=== PATIENT | male | born 1925 | race Caucasian/White ===

== ENCOUNTER 2017-03-23 13:40 | Emergency (ER) | payer MEDICARE, BC ==
[2017-03-23 14:16] VITALS: BP 143/71
[2017-03-23] MEDS ORDERED: Albuterol/Ipratropium 3.0-0.5 MG/3 ML Neb Soln NEB ONE (14:26)
--- NOTE | 2017-03-23 14:30 | EDM.PDOC ---
ED HPI GENERAL MEDICAL PROBLEM - General Chief Complaint: Respiratory Problem Stated Complaint: shortness of breath. Time Seen by Provider: 03/23/17 14:25 Source of Information: Reports: Patient History Limitations: Reports: No Limitations - History of Present Illness INITIAL COMMENTS - FREE TEXT/NARRATIVE: 89-year-old male presents to the ED with gradually worsening dyspnea over the last 6 months. He states it got to the point that he can't make his bed without having to stop because of dyspnea. He can't get fully dressed without having to stop and rest. He has known COPD. Smoking 35 years ago. 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 Has no known heart disease. Denies any chest pain on exertion dyspnea. Sputum is usually 10 in color because anything up. He was recently seen in the clinic last week and started on Spiriva inhaler he got a cheaper form of this but states he really hasn't noticed any difference in terms of his dyspnea. He did not have any pneumonias or influenza over the last 6 months. Has had his pneumonia and flu shots. He is good when he is at rest. He can lay flat to sleep with no point paroxysmal nocturnal dyspnea or orthopnea. Onset: Gradual (Over the last 3-6 months.) Duration: Week(s):, Chronic, Getting Worse Location: Reports: Chest (Can get her.) Quality: Reports: Other Severity: Severe (Shortness of breath on exertion) Improves with: Reports: Rest Worsens with: Reports: Movement Context: Reports: Activity. Denies: Exercise, Lifting, Sick Contact, Trauma, Other Associated Symptoms: Reports: cough w sputum (10-colored sputum), Shortness of Breath, Weakness. 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: Reports: Other (see below) - Related Data Allergies Allergy/AdvReac Type Severity Reaction Status Date / Time No Known Allergies Allergy Verified 03/23/17 14:16 Home Meds: Home Meds Warfarin Sodium [Coumadin] 3 mg PO ASDIRECTED 09/05/16 [History] Warfarin Sodium [Coumadin] 6 mg PO ASDIRECTED 09/05/16 [History] Albuterol [Ventolin HFA] 108 mcg INH Q4H PRN 09/06/16 [History] Aspirin 162 mg PO BRK 09/06/16 [History] Donepezil HCl [Aricept] 10 mg PO DAILY 09/06/16 [History] Folic Acid 0.8 mg PO DAILY 09/06/16 [History] Metoprolol Tartrate [Lopressor] 25 mg PO Q12HR 09/06/16 [History] Omeprazole 20 mg PO DAILY 09/06/16 [History] Simvastatin [Zocor] 40 mg PO BEDTIME 09/06/16 [History] Temazepam [Restoril] 15 mg PO BEDTIME PRN 09/06/16 [History] Tiotropium [Spiriva HandiHaler] 18 mcg INH DAILY 09/06/16 [History] Furosemide [Lasix] 40 mg PO PCBREAKFAST #30 tablet 03/23/17 [Rx] Lisinopril 10 mg PO DAILY #30 tablet 03/23/17 [Rx] Past Medical History HEENT History: Reports: Cataract, Impaired Vision Cardiovascular History: Reports: Afib (Chronically and is on Coumadin for this.) , Arrhythmia, Hypertension, MT, SOB on Exertion Respiratory History: Reports: COPD Genitourinary History: Reports: Prostate Disorder Musculoskeletal History: Reports: Arthritis Neurological History: Reports: Other (See Below) Other Neuro History: takes aricept Psychiatric History: Reports: Anxiety, Dementia, Other (See Below) Endocrine/Metabolic History: Reports: Other (See Below) Other Endocrine/Metabolic History: Hodgkin's lymphoma Hematologic History: Reports: Other (See Below) Other Hematologic History: is on blood thinner Oncologic (Cancer) History: Reports: Hodgkin's Lymphoma - Past Surgical History Male Surgical History: Reports: Other (See Below) Social & Family History - Family History Family Medical History: Noncontributory - Tobacco Use Smoking Status *Q: Former Smoker Years of Tobacco use: 50 Used Tobacco, but Quit: Yes Month Tobacco Last Used: 40 years - Caffeine Use Caffeine Use: Reports: Coffee - Recreational Drug Use Recreational Drug Use: No - Living Situation & Occupation Living situation: Reports: Single Occupation: Retired ED ROS GENERAL - Review of Systems Review Of Systems: See Below Constitutional: Reports: Malaise, Weakness, Fatigue. Denies: Fever, Chills, Decreased Appetite, Weight Loss HEENT: Reports: No Symptoms, Glasses Respiratory: Reports: Shortness of Breath, Wheezing (Chronically), Cough, Sputum ([place] in color. ). Denies: Pleuritic Chest Pain Cardiovascular: Reports: Dyspnea on Exertion (Severe). Denies: Chest Pain, Blood Pressure Problem, Claudication, Edema, Lightheadedness, Orthopnea, Palpitations Endocrine: Reports: No Symptoms GI/Abdominal: Reports: No Symptoms : Reports: Other (Nocturia usually x3.) Musculoskeletal: Reports: Back Pain, Leg Pain (Some back pain). Denies: Neck Pain, Shoulder Pain, Arm Pain Skin: Reports: No Symptoms Neurological: Reports: No Symptoms Psychiatric: Reports: No Symptoms Hematologic/Lymphatic: Reports: No Symptoms Immunologic: Reports: No Symptoms ED EXAM, GENERAL - Physical Exam Exam: See Below Exam Limited By: No Limitations General Appearance: Alert, WD/WN, No Apparent Distress, Mild Distress (Is obviously dyspneic just talking to) Eye Exam: Bilateral Eye: Normal Inspection Throat/Mouth: Normal Inspection, Normal Lips, Normal Oropharynx Head: Atraumatic, Normocephalic Neck: Normal Inspection, Supple, Non-Tender, Full Range of Motion. No: Carotid Bruit, Lymphadenopathy (L), Lymphadenopathy (R) Respiratory/Chest: Decreased Breath Sounds. No: Rhonchi (Assaulters minimally did diminish to posterior lung cavazos. Occasional expiratory wheeze appreciated no rhonchi.) Cardiovascular: Normal Peripheral Pulses, No Edema, No Gallop, No Murmur, No Rub , Irregularly Irregular Peripheral Pulses: 1+: Posterior Tibial (L), Posterior Tibial (R), Dorsalis Pedis (L), Dorsalis Pedis (R) GI/Abdominal: Normal Bowel Sounds, Non-Tender, No Organomegaly, Other (Firm to palpation) Back Exam: Normal Inspection, Full Range of Motion Extremities: Normal Inspection, Normal Range of Motion, Non-Tender, Normal Capillary Refill Neurological: Alert, Oriented, CN II-XII Intact, Normal Cognition Psychiatric: Normal Affect, Normal Mood Skin Exam: Warm, Dry, Intact, Normal Color, No Rash EKG INTERPRETATION EKG Date: 03/23/17 Time: 14:40 Rhythm: other (Sinus bradycardia at 48 per minute) Rate (beats/min): 48 Errol: LAD-left axis deviation (-87. Left anterior fascicular block pattern) P-wave: present QRS: other (Early R wave transition consider right ventricular hypertrophy with pulmonary hypertension pattern.) ST-T: other (Diffuse T-wave changes throughout mostly flattening.) QT: prolonged Course - Vital Signs Last Recorded V/S: Last Vital Signs Temp 36.1 C 03/23/17 14:10 Pulse 48 L 03/23/17 14:10 Resp 26 H 03/23/17 14:10 BP 143/71 H 03/23/17 14:10 Pulse Ox 96 03/23/17 14:45 - Orders/Labs/Meds Orders: Active Orders 24 hr Category Date Time Status EKG Documentation Completion [RC] STAT Care 03/23/17 14:27 Active RT Aerosol Therapy [RC] ASDIRECTED Care 03/23/17 14:27 Active ABG [BLOOD GAS ARTERIAL] [BG] Stat Lab 03/23/17 14:54 Results Labs: Laboratory Tests 03/23/17 03/23/17 03/23/17 Range/Units 14:45 14:45 14:45 WBC 5.45 (4.23-9.07) K/mm3 RBC 4.15 L (4.63-6.08) M/mm3 Hgb 12.7 L (13.7-17.5) gm/L Hct 38.5 L (40.1-51.0) % MCV 92.8 H (79.0-92.2) fl MCH 30.6 (25.7-32.2) pg MCHC 33.0 (32.2-35.5) g/dl RDW Std Deviation 53.3 H (35.1-43.9) fL Plt Count 118 L (163-337) K/mm3 MPV 11.1 (9.4-12.3) fl Neutrophils % (Manual) 55 (40-60) % Band Neutrophils % 1 (0-10) % Lymphocytes % (Manual) 34 (20-40) % Atypical Lymphs % 0 % Monocytes % (Manual) 8 (2-10) % Eosinophils % (Manual) 2 (0.8-7.0) % Basophils % (Manual) 0 L (0.2-1.2) Platelet Estimate Adequate Plt Morphology Comment Normal RBC Morph Comment Normal PT (8.0-13.0) SECONDS INR ABG pH (7.35-7.45) ABG pCO2 (35.0-45.0) mmHg ABG pO2 (80.0-100.0) mmHg ABG HCO3 (22.0-26.0) meq/L ABG O2 Saturation (96.0-97.0) % ABG Base Excess (-2-2.0) Antonio Test A-a Gradient mmHg O2 Delivery Device FiO2 (21.00-100.00) % Sodium 139 (136-145) mEq/L Potassium 4.0 (3.5-5.1) mEq/L Chloride 107 (98-107) mEq/L Carbon Dioxide 21 (21-32) mEq/L Anion Gap 15.0 (5-15) BUN 16 (7-18) mg/dL Creatinine 1.0 (0.7-1.3) mg/dL Est Cr Clr Drug Dosing 48.45 mL/min Estimated GFR (MDRD) > 60 (>60) mL/min BUN/Creatinine Ratio 16.0 (14-18) Glucose 112 (83-115) mg/dL Calcium 9.3 (8.5-10.1) mg/dL Total Bilirubin 1.2 H (0.2-1.0) mg/dL AST 18 (15-37) U/L ALT 19 (16-63) U/L Alkaline Phosphatase 78 (46-116) U/L Troponin I 0.048 (0.00-0.056) ng/mL C-Reactive Protein 0.4 (<1.0) mg/dL B-Natriuretic Peptide 828 H (0-100) pg/mL Total Protein 6.7 (6.4-8.2) g/dl Albumin 3.7 (3.4-5.0) g/dl Globulin 3.0 gm/dL Albumin/Globulin Ratio 1.2 (1-2) 03/23/17 03/23/17 Range/Units 14:45 14:54 WBC (4.23-9.07) K/mm3 RBC (4.63-6.08) M/mm3 Hgb (13.7-17.5) gm/L Hct (40.1-51.0) % MCV (79.0-92.2) fl MCH (25.7-32.2) pg MCHC (32.2-35.5) g/dl RDW Std Deviation (35.1-43.9) fL Plt Count (163-337) K/mm3 MPV (9.4-12.3) fl Neutrophils % (Manual) (40-60) % Band Neutrophils % (0-10) % Lymphocytes % (Manual) (20-40) % Atypical Lymphs % % Monocytes % (Manual) (2-10) % Eosinophils % (Manual) (0.8-7.0) % Basophils % (Manual) (0.2-1.2) Platelet Estimate Plt Morphology Comment RBC Morph Comment PT 28.4 H (8.0-13.0) SECONDS INR 2.46 ABG pH 7.39 (7.35-7.45) ABG pCO2 31.2 L (35.0-45.0) mmHg ABG pO2 56.0 L (80.0-100.0) mmHg ABG HCO3 18.3 L (22.0-26.0) meq/L ABG O2 Saturation 90.5 L (96.0-97.0) % ABG Base Excess -5.3 L (-2-2.0) Antonio Test Positive A-a Gradient 40 mmHg O2 Delivery Device Rr FiO2 21.00 (21.00-100.00) % Sodium (136-145) mEq/L Potassium (3.5-5.1) mEq/L Chloride (98-107) mEq/L Carbon Dioxide (21-32) mEq/L Anion Gap (5-15) BUN (7-18) mg/dL Creatinine (0.7-1.3) mg/dL Est Cr Clr Drug Dosing mL/min Estimated GFR (MDRD) (>60) mL/min BUN/Creatinine Ratio (14-18) Glucose (83-115) mg/dL Calcium (8.5-10.1) mg/dL Total Bilirubin (0.2-1.0) mg/dL AST (15-37) U/L ALT (16-63) U/L Alkaline Phosphatase (46-116) U/L Troponin I (0.00-0.056) ng/mL C-Reactive Protein (<1.0) mg/dL B-Natriuretic Peptide (0-100) pg/mL Total Protein (6.4-8.2) g/dl Albumin (3.4-5.0) g/dl Globulin gm/dL Albumin/Globulin Ratio (1-2) Meds: Medications Discontinued Medications Generic Name Dose Route Start Last Admin Trade Name Freq PRN Reason Stop Dose Admin Albuterol/Ipratropium 3 ml 03/23/17 14:26 03/23/17 14:44 Duoneb 3.0-0.5 Mg/3 Ml NEB 03/23/17 14:27 3 ml ONETIME ONE Administration - Radiology Interpretation Free Text/Narrative:: 89-year-old male presents to the ED for evaluation of gradually worsening dyspnea over the last 3-6 months. He has a history of COPD for many years. Quit smoking 35 years ago. He does use an albuterol inhaler when necessary. He does not use a home nebulizer. Was recently started on Spiriva or and adjuvant of the Spiriva due to the cost and has not noticed any improvement in lung function. Has no known heart disease. Examination reveals air entry is satisfactory to both lower lung cavazos without any adventitial sounds. He does have a thickened AP diameter of the chest with slight turtling. No clubbing of the fingers identified. Heart sounds are good. Fairly good peripheral pulses. No dependent edema. Plan two-view chest. ABGs to be done to enable be given. See what routine labs revealed. - Re-Assessments/Exams Free Text/Narrative Re-Assessment/Exam: 03/23/17 15:30: two-view chest x-ray has the impression of diffuse vascular congestion with I suspect trace pleural effusion right lung base. The right hemidiaphragm is slightly elevated with colonic air underneath it. Tortuous thoracic aorta is appreciated. Slight blunting of the posterior costophrenic angles are seen bilaterally. Mild cardiomegaly noted. ECG revealed sinus bradycardia at 48 per minute there is a left anterior axis the deviation of -87 compatible with a left anterior fascicular block. There is early R-wave transition suspicious for right ventricular hypertrophy and pulmonary hypertension. Diffuse T wave changes throughout all leads. QT interval is prolonged. 03/23/17 16:04 lab reveals a normal white count of 5.45. Hemoglobin is 12.7. Hematocrit is 38.5 platelets are normal 118,000. Chemistry shows a sodium of 139 potassium of 4.0. Portable 7. Bicarbonate is 21. PT is 20.4 with an INR of 2.46 i.e. therapeutic blood gases revealed a pH of 7.39 PCO2 of 31.2 PaO2 of 56.0 Vicryl 18.3 base excess days excess is -5.3. Bilirubin is 1.2. Troponin 0.48 BNP elevated H. 128. I suspect this developed chronic congestive failure changes secondary to pulmonary hypertension and severe COPD we'll start him on Lasix 40 mg once daily and see how he makes out in terms of breathing and have them followup with Dr. Chester in a week. He is nearly a candidate for oxygen therapy certainly he would desaturate well below 88% on minimal exertion. However his O2 sats may improve once his heart failure is improved. He is also not on an SENG inhibitor and I will place him on low-dose lisinopril 10 mg daily. He'll check his weights daily and documented weight loss. He is to followup with Dr. Chester in and asked 7-10 days for renal function assessment potassium assessment and weight loss and obviously whether or not his cough and dyspnea are improved. He will need an echocardiogram at some point in time. Departure - Departure Time of Disposition: 16:14 Disposition: Home, Self-Care 01 Condition: fair Clinical Impression: Pulmonary hypertension Congestive heart failure Qualifiers: Congestive heart failure type: unspecified congestive heart failure type Congestive heart failure chronicity: acute on chronic Qualified Code(s): I50.9 - Heart failure, unspecified COPD (chronic obstructive pulmonary disease) Qualifiers: COPD type: emphysema Emphysema type: panlobular Qualified Code(s): J43.1 - Panlobular emphysema - Discharge Information Prescriptions: Furosemide [Lasix] 40 mg PO PCBREAKFAST #30 tablet Lisinopril 10 mg PO DAILY #30 tablet Instructions: Chronic Obstructive Pulmonary Disease, [id number], Pulmonary Hypertension, Heart Failure, [id number] Referrals: Benitez Buckner MD [Primary Care Provider] - Forms: ED Department Discharge Additional Instructions: Evaluation in the emergency room today in regards to increasing shortness of breath on minimal exertion gradually worsening over the last several months. History of COPD but quit smoking 35 years ago. 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 Chest x-ray done he does reveal increased fluid within the lungs and this is confirmed by blood tests with a BNP of 828. Your nearly at the levels that she would require oxygen assist throughout the day according to your blood gases. However they may improve substantially once we get some of the fluid out of your lungs. No medications will be Lasix 40 mg once daily in the morning with lisinopril 10 mg tablet once daily morning which also helps the heart get stronger over time. He need followup with her personal physician particularly with regards to echocardiogram and probable cardiology consultation regarding possible pulmonary hypertension which also can be managed with medication. Stop on a scale daily and see how much weight you lose over the next 7-10 days to document this. You need to see her doctor in 7-10 days time for repeat lab test to see how well the kidneys are managing with the new medications. - My Orders Last 24 Hours: My Active Orders 03/23/17 14:27 EKG Documentation Completion [RC] STAT RT Aerosol Therapy [RC] ASDIRECTED 03/23/17 14:54 ABG [BLOOD GAS ARTERIAL] [BG] Stat - Assessment/Plan Last 24 Hours: My Active Orders 03/23/17 14:27 EKG Documentation Completion [RC] STAT RT Aerosol Therapy [RC] ASDIRECTED 03/23/17 14:54 ABG [BLOOD GAS ARTERIAL] [BG] Stat
--- NOTE | 2017-03-23 15:37 | CR ---
Chest: Two views of the chest are obtained. Comparison: Previous chest x-ray of 09/05/16. Increased interstitial change is seen throughout both lungs. Findings presumably represent pulmonary vascular congestion. Findings are fairly stable from prior exam. Heart size at the upper limits of normal. Tortuous thoracic aorta is seen. Slight blunting of the posterior costophrenic angles are seen possibly representing minimal pleural effusions. Impression: 1. Findings suspicious for CHF. Diagnostic code #3
== END 2017-03-23 16:30 | disposition home or self-care (01) ==
LOC: JD.ED 13:40
DX: J43.1 Panlobular emphysema (principal); I50.9 Heart failure, unspecified; I27.2 Other secondary pulmonary hypertension; Z85.71 Personal history of Hodgkin lymphoma; F41.9 Anxiety disorder, unspecified; F03.90 Unspecified dementia, unspecified severity, without behavioral disturbance, psychotic disturbance, mood disturbance, and anxiety; Z87.891 Personal history of nicotine dependence; Z79.899 Other long term (current) drug therapy
CPT/HCPCS: 36415; 36600; 71020; 71020-26; 80053; 82803; 83880; 84484; 85025; 85610; 86140; 93005; 94664; 99285; 99285-25